=== PATIENT | female | born 1990 | race Caucasian/White ===

== ENCOUNTER → 2017-05-24 | Outpatient (CLI) | payer SELFPAY ==
--- NOTE | ~2017-05-24 | EKG ---
[place], [place] ELECTROCARDIOGRAM REPORT NAME: MASOUD ECHAVARRIA UNIT #: [id number] ROOM: DOCTOR: EMERSON NOBLES MD BIRTHDATE: [birth year] DOS: 05/24/2017 TIME: 11:01:37. RATE AND RHYTHM: Sinus bradycardia at 48 beats per minute. FL interval 138 milliseconds, QRS duration 95 milliseconds, corrected QT interval 395 milliseconds. QRS axis 75. IMPRESSION: Sinus bradycardia, otherwise normal EKG. EMERSON NOBLES MD CM:EKGRPT:ELECTROCARDIOGRAM REPORT [id number] EMERSON NOBLES MD
== END | disposition home or self-care (01) ==
LOC: RESCLI 08:15 → CARD 08:16 → RESCLI 08:16
DX: Z76.89 Persons encountering health services in other specified circumstances (principal); R00.1 Bradycardia, unspecified; Z82.41 Family history of sudden cardiac death

== ENCOUNTER → 2017-05-26 | Outpatient (CLI) | payer SELFPAY ==
[2017-05-26 08:55] LABS: BASO % 0.9 % (0.0-1.0); EOS # 0.1 10*3/uL (0.0-0.4); EOS % 2.6 % (1.0-4.0); HEMATOCRIT 38.8 % (37.0-47.0); HEMOGLOBIN 12.7 g/dl (12.0-16.0); LYMPH # 2.3 10*3/uL (1.3-4.4); LYMPH % 50.8 % (27.0-41.0); MEAN CELL VOLUME 89.4 fl (81.0-99.0); MEAN CORPUSCULAR HGB 29.3 pg (27.0-31.0); MEAN CORPUSCULAR HGB CONC 32.7 g/dl (33.0-37.0); MEAN PLATELET VOLUME 10.9 fl (9.6-12.3); MONO # 0.5 10*3/uL (0.1-1.0); MONO % 9.8 % (3.0-9.0); NEUT # 1.6 10*3/uL (2.3-7.9); NEUT % 35.7 % (47.0-73.0); PLATELET COUNT AUTOMATED 186 10*3/uL (130-400); RED BLOOD COUNT 4.34 10*6/uL (4.10-5.10); RED CELL DISTRI WIDTH 11.9 % (0-14.5); WHITE BLOOD COUNT 4.6 10*3/uL (4.8-10.8)
[2017-05-26 09:13] LABS: ALBUMIN 3.7 gm/dl (3.1-4.5); ALKALINE PHOSPHATASE 52 U/L (45-117); BUN 10 mg/dl (7-24); CHLORIDE 106 mmol/L (98-107); CHOLESTEROL 159 mg/dL (<200); CREATININE 0.83 mg/dL (0.55-1.02); HDL CHOLESTEROL 67 mg/dl (40-60); LDL CHOLESTEROL 77 mg/dL (9-159); POTASSIUM 4.2 mmol/L (3.5-5.1); SGOT/AST 26 IU/L (3-35); SGPT/ALT 28 U/L (12-78); SODIUM 138 mmol/L (136-145); TOTAL PROTEIN 7.5 gm/dL (6.4-8.2); TRIGLYCERIDES 77 mg/dl (<150); VLDL CHOLESTEROL 15 mg/dL (6-40)
== END | disposition home or self-care (01) ==
LOC: LAB 01:59 → CARD 11:30
PROVIDERS: Internal Medicine
DX: Z76.89 Persons encountering health services in other specified circumstances (principal); I34.0 Nonrheumatic mitral (valve) insufficiency; Z82.41 Family history of sudden cardiac death; R79.89 Other specified abnormal findings of blood chemistry

== ENCOUNTER → 2017-06-16 | Outpatient (CLI) | payer SELFPAY ==
[2017-06-16 08:00] LABS: BASO # 0.1 10*3/uL (0.0-0.1); BASO % 0.9 % (0.0-1.0); EOS # 0.1 10*3/uL (0.0-0.4); EOS % 2.3 % (1.0-4.0); HEMOGLOBIN 12.8 g/dl (12.0-16.0); LYMPH # 2.6 10*3/uL (1.3-4.4); LYMPH % 45.9 % (27.0-41.0); MEAN CELL VOLUME 88.4 fl (81.0-99.0); MEAN CORPUSCULAR HGB 29.8 pg (27.0-31.0); MEAN CORPUSCULAR HGB CONC 33.7 g/dl (33.0-37.0); MEAN PLATELET VOLUME 10.7 fl (9.6-12.3); MONO # 0.5 10*3/uL (0.1-1.0); MONO % 8.4 % (3.0-9.0); NEUT # 2.4 10*3/uL (2.3-7.9); NEUT % 42.3 % (47.0-73.0); PLATELET COUNT AUTOMATED 187 10*3/uL (130-400); RED CELL DISTRI WIDTH 11.9 % (0-14.5); WHITE BLOOD COUNT 5.6 10*3/uL (4.8-10.8)
== END | disposition home or self-care (01) ==
LOC: LAB 02:23
PROVIDERS: Internal Medicine
DX: D72.810 Lymphocytopenia (principal)